=== PATIENT | female | born 1970 | race Two or more races ===

== ENCOUNTER → 2018-12-11 | Outpatient (CLI) | payer OTHER ==
--- NOTE | 2018-12-11 15:26 | RAD ---
Right shoulder, 3 views, 12/11/2018: HISTORY: Shoulder pain No fracture or dislocation is identified. No significant arthritic change is seen. The periarticular soft tissues are unremarkable. IMPRESSION: No significant right shoulder abnormality is detected. Electronically signed by: Johnny Gill MD (12/11/2018 3:23 PM) [facility]
== END | disposition home or self-care (01) ==
LOC: MRI 13:03
PROVIDERS: ATTEND Internal Medicine
DX: M25.511 Pain in right shoulder (principal)
CPT/HCPCS: 73030